=== PATIENT | male | born 1955 | race Caucasian/White ===

== ENCOUNTER 2016-08-17 22:23 | Inpatient (IN) | payer MEDICARE, OTHER ==
[~2016-08-17] VITALS: Ht 167.6 cm; Wt 102.4 kg
[2016-08-17] MEDS ORDERED: ASPI-496 PO (22:46)
[2016-08-17] MEDS ORDERED: METF10002 PO (22:46)
[2016-08-17] MEDS ORDERED: ASPIRIN 81 MG TABLET CHEW PO ONE (23:00)
[2016-08-17 23:35] LABS: BLOOD UREA NITROGEN 15 mg/dL (7-18)
[2016-08-17 23:39] LABS: IS PT STATUS REG ER OR PRE ER? YES
[2016-08-18] MEDS ORDERED: ASPIRIN 81 MG TABLET CHEW ONE (00:01)
[2016-08-18] MEDS ORDERED: ONDANSETRON 2MG/ML, 2ML IVPush PRN (00:30)
[2016-08-18] MEDS ORDERED: MORPHINE SULFATE 4 MG/ML, 1ML IVPush PRN ×2 (00:30→01:00)
[2016-08-18] MEDS ORDERED: hydrALAzine 20 MG/ML, 1ML IV PRN (01:00)
[2016-08-18] MEDS ORDERED: POLYETHYLENE GLYCOL 17 GM PACKET PO PRN (01:00)
[2016-08-18] MEDS ORDERED: LABETALOL 5MG/ML, 20ML IVPush PRN (01:00)
[2016-08-18] MEDS ORDERED: ENALAPRILAT 1.25 MG/ML, 2ML IV PRN (01:00)
[2016-08-18] MEDS ORDERED: ACETAMINOPHEN 325 MG TABLET PO PRN (01:00)
[2016-08-18] MEDS ORDERED: ONDANSETRON 2MG/ML, 2ML IVP PRN (01:00)
[2016-08-18] MEDS ORDERED: HYDROcodone/APAP 5/325 TABLET PO PRN (01:00)
[2016-08-18] MEDS ORDERED: DOCUSATE 100 MG CAPSULE PO PRN (01:00)
[2016-08-18] MEDS ORDERED: NITROGLYCERIN 0.4 MG BOTTLE (25 TABS) SL PRN (01:00)
[2016-08-18] MEDS: [UNRECOGNIZED DRUG - REMARK] MC SCH ×2 (01:30→10:09)
[2016-08-18 01:59] VITALS: BP 126/76
[2016-08-18] MEDS: ENOXAPARIN 40 MG/0.4 ML SQ SCH (02:43)
[2016-08-18 03:16] LABS: DAU SCREEN DISCLAIMER
[2016-08-18] MEDS ORDERED: ASPIRIN 325 MG TABLET EC PO SCH (06:00)
[2016-08-18 06:19] LABS: IS PT STATUS REG ER OR PRE ER? NO
[2016-08-18] MEDS ORDERED: INSU500V SQ-INSULIN (08:14)
[2016-08-18] MEDS: INSULIN DETEMIR 100 UNITS/ML, PEN SQ-INSULIN SCH ×2 (08:30→21:33)
[2016-08-18] MEDS ORDERED: CEPHALEXIN 500 MG CAPSULE PO SCH (08:30)
[2016-08-18] MEDS: INSULIN REGULAR 100 UNITS/ML, 3ML VIAL SQ-INSULIN SCH ×4 (10:05→21:34)
[2016-08-18] MEDS: ASPIRIN 81 MG TABLET EC PO SCH (10:05)
[2016-08-18] MEDS: SODIUM CHLORIDE FLUSH 10ML SYR IVF SCH ×2 (10:06→21:24)
[2016-08-18] MEDS: SENNA/DOCUSATE TABLET PO SCH (10:09)
[2016-08-18 10:13] VITALS: BP 125/85
[2016-08-18] MEDS: GUAIFENESIN/DM 100-10MG, 5ML UDC PO PRN (11:39)
[2016-08-18] MEDS: CLINDAMYCIN 300 MG CAPSULE PO SCH ×2 (14:50→21:23)
[2016-08-18 14:52] VITALS: BP 123/83
[2016-08-18] MEDS: LISINOPRIL 5 MG TABLET PO SCH (15:23)
[2016-08-18] MEDS: LACTOBACILLUS CHEW TABLET PO SCH ×2 (15:23→21:23)
[2016-08-18 19:48] VITALS: BP 113/76
[2016-08-18] MEDS: ATORVASTATIN 80 MG TABLET PO SCH (21:23)
[2016-08-19 00:29] VITALS: BP 118/71
[2016-08-19] MEDS: GUAIFENESIN/DM 100-10MG, 5ML UDC PO PRN ×3 (00:55→17:31)
[2016-08-19] MEDS: LACTOBACILLUS CHEW TABLET PO SCH ×4 (04:33→20:14)
[2016-08-19] MEDS: CLINDAMYCIN 300 MG CAPSULE PO SCH ×4 (04:33→20:14)
[2016-08-19] MEDS: ENOXAPARIN 40 MG/0.4 ML SQ SCH (04:34)
[2016-08-19 05:55] LABS: BLOOD UREA NITROGEN 12 mg/dL (7-18)
[2016-08-19] MEDS: INSULIN REGULAR 100 UNITS/ML, 3ML VIAL SQ-INSULIN SCH ×4 (07:00→20:19)
[2016-08-19 07:41] VITALS: BP 107/74
[2016-08-19] MEDS: SODIUM CHLORIDE FLUSH 10ML SYR IVF SCH ×2 (08:26→20:15)
[2016-08-19] MEDS: ASPIRIN 81 MG TABLET EC PO SCH (08:26)
[2016-08-19] MEDS: INSULIN DETEMIR 100 UNITS/ML, PEN SQ-INSULIN SCH ×2 (08:26→20:19)
[2016-08-19] MEDS: LISINOPRIL 5 MG TABLET PO SCH (08:27)
[2016-08-19] MEDS: SENNA/DOCUSATE TABLET PO SCH (08:27)
[2016-08-19 10:47] VITALS: BP 112/76
[2016-08-19] MEDS: METOPROLOL SUCCINATE 25 MG TAB.ER.24H PO SCH (10:48)
[2016-08-19 12:41] VITALS: BP 98/63
[2016-08-19 20:12] VITALS: BP 99/68
[2016-08-19] MEDS: ATORVASTATIN 80 MG TABLET PO SCH (20:14)
[2016-08-20 01:30] VITALS: BP 123/88
[2016-08-20] MEDS: CLINDAMYCIN 300 MG CAPSULE PO SCH ×4 (03:11→20:30)
[2016-08-20] MEDS: ENOXAPARIN 40 MG/0.4 ML SQ SCH (03:13)
[2016-08-20] MEDS: LACTOBACILLUS CHEW TABLET PO SCH ×4 (05:53→20:29)
[2016-08-20] MEDS: METOPROLOL SUCCINATE 25 MG TAB.ER.24H PO SCH (05:54)
[2016-08-20] MEDS: INSULIN REGULAR 100 UNITS/ML, 3ML VIAL SQ-INSULIN SCH ×4 (07:00→20:29)
[2016-08-20] MEDS: ASPIRIN 81 MG TABLET EC PO SCH (08:29)
[2016-08-20] MEDS: SODIUM CHLORIDE FLUSH 10ML SYR IVF SCH ×2 (08:29→20:29)
[2016-08-20] MEDS: SENNA/DOCUSATE TABLET PO SCH (08:29)
[2016-08-20] MEDS: LISINOPRIL 5 MG TABLET PO SCH (08:29)
[2016-08-20] MEDS: INSULIN DETEMIR 100 UNITS/ML, PEN SQ-INSULIN SCH ×2 (08:32→20:28)
[2016-08-20 09:10] VITALS: BP 121/84
[2016-08-20 09:28] VITALS: BP 132/88
[2016-08-20] MEDS: GUAIFENESIN/DM 100-10MG, 5ML UDC PO PRN ×2 (15:20→20:38)
[2016-08-20] MEDS: GUAIFENESIN 200 MG TABLET PO SCH ×2 (15:20→20:30)
[2016-08-20 20:20] VITALS: BP 129/85
[2016-08-20] MEDS: ATORVASTATIN 80 MG TABLET PO SCH (20:29)
[2016-08-21 01:02] VITALS: BP 151/87
[2016-08-21] MEDS: ENOXAPARIN 40 MG/0.4 ML SQ SCH (03:50)
[2016-08-21] MEDS: CLINDAMYCIN 300 MG CAPSULE PO SCH ×2 (03:50→10:12)
[2016-08-21] MEDS: GUAIFENESIN/DM 100-10MG, 5ML UDC PO PRN (03:50)
[2016-08-21 05:50] LABS: BLOOD UREA NITROGEN 10 mg/dL (7-18)
[2016-08-21 05:51] LABS: IS PT STATUS REG ER OR PRE ER? NO
[2016-08-21] MEDS: METOPROLOL SUCCINATE 25 MG TAB.ER.24H PO SCH (06:31)
[2016-08-21] MEDS: LACTOBACILLUS CHEW TABLET PO SCH ×2 (06:32→12:05)
[2016-08-21] MEDS: GUAIFENESIN 200 MG TABLET PO SCH ×2 (06:32→10:12)
[2016-08-21] MEDS: INSULIN REGULAR 100 UNITS/ML, 3ML VIAL SQ-INSULIN SCH ×2 (07:00→12:05)
[2016-08-21] MEDS ORDERED: ISOSORBIDE MONONITRATE ER 30 MG TABLET PO SCH (09:00)
[2016-08-21] MEDS: SENNA/DOCUSATE TABLET PO SCH (09:00)
[2016-08-21] MEDS ORDERED: LISINOPRIL 10 MG TABLET PO SCH (09:00)
[2016-08-21 09:19] VITALS: BP 107/69
[2016-08-21] MEDS: ASPIRIN 81 MG TABLET EC PO SCH (10:11)
[2016-08-21] MEDS: INSULIN DETEMIR 100 UNITS/ML, PEN SQ-INSULIN SCH (10:11)
[2016-08-21] MEDS: SODIUM CHLORIDE FLUSH 10ML SYR IVF SCH (10:12)
[2016-08-21] MEDS ORDERED: METO25TA91 PO (11:49)
[2016-08-21] MEDS ORDERED: GUAI400T26 PO (11:49)
[2016-08-21] MEDS ORDERED: DOXY100T PO (11:49)
[2016-08-21] MEDS ORDERED: LISI-167 PO (11:49)
[2016-08-21] MEDS ORDERED: ATOR80TA75 PO (11:49)
== END 2016-08-21 14:30 | disposition home or self-care (01) | DRG 204 ==
LOC: ED 23:59 → EDIP 08-18 00:27 → SUATTDRO 08-18 00:28 → 5SO 08-18 02:10
PROVIDERS: ADMIT Family Medicine; ATTEND Family Medicine
DX: R07.81 Pleurodynia (principal); E44.0 Moderate protein-calorie malnutrition; E87.1 Hypo-osmolality and hyponatremia; I50.42 Chronic combined systolic (congestive) and diastolic (congestive) heart failure; I42.9 Cardiomyopathy, unspecified; L03.116 Cellulitis of left lower limb; L03.115 Cellulitis of right lower limb; E11.65 Type 2 diabetes mellitus with hyperglycemia; I25.10 Atherosclerotic heart disease of native coronary artery without angina pectoris; E66.9 Obesity, unspecified; E78.5 Hyperlipidemia, unspecified; F31.9 Bipolar disorder, unspecified; G40.909 Epilepsy, unspecified, not intractable, without status epilepticus; I11.0 Hypertensive heart disease with heart failure; I45.9 Conduction disorder, unspecified; R05 Cough; Z87.891 Personal history of nicotine dependence; Z91.14 Patient's other noncompliance with medication regimen; Z59.0 Homelessness; Z82.0 Family history of epilepsy and other diseases of the nervous system; Z91.19 Patient's noncompliance with other medical treatment and regimen; Z82.49 Family history of ischemic heart disease and other diseases of the circulatory system; Z98.61 Coronary angioplasty status; Z79.82 Long term (current) use of aspirin; Z86.14 Personal history of Methicillin resistant Staphylococcus aureus infection; Z68.36 Body mass index [BMI] 36.0-36.9, adult; I25.2 Old myocardial infarction; Z86.73 Personal history of transient ischemic attack (TIA), and cerebral infarction without residual deficits
CPT/HCPCS: 36415; 71010; 78452; 80048; 80061; 80307; 82040; 82962; 83036; 84439; 84443; 84484; 85025; 93005; 93017; 93306; J1650; J1815; A9502; C9898